=== PATIENT | male | born 1965 ===

== ENCOUNTER 2017-11-14 08:06 | Day surgery (SDC) | payer OTHER ==
[2017-11-14 08:46] VITALS: BMI 24.2
[2017-11-14] MEDS ORDERED: Lactated Ringer's 1,000 ML IV ONE (08:49)
[2017-11-14] MEDS ORDERED: Midazolam 2 MG/2 ML VIAL ONE (10:03)
[2017-11-14] MEDS ORDERED: Propofol 10 mg/ml Inj (20 ML) ONE (10:03)
[2017-11-14 10:32] VITALS: TEMP 96.8
[2017-11-14 10:46] VITALS: BP 101/73; PULSE 54; RESP 15; O2SAT 97
== END 2017-11-14 13:21 | disposition home or self-care (01) ==
LOC: H.ENDO 08:06
PROVIDERS: ATTEND Internal Medicine Gastroenterology
DX: Z12.11 Encounter for screening for malignant neoplasm of colon (principal); K29.90 Gastroduodenitis, unspecified, without bleeding; E78.5 Hyperlipidemia, unspecified; R06.83 Snoring
CPT/HCPCS: 88305; G0121; J2250; J2704; J7120